=== PATIENT | male | born 1995 | race Two or more races ===

== ENCOUNTER 2016-11-02 14:55 | Emergency (ER) | payer OTHER ==
[2016-11-02 15:07] VITALS: TEMP 97.7; O2SAT 98
--- NOTE | 2016-11-02 16:16 | EDPHY ---
H & P Time Seen by Provider: 11/02/16 15:59 HPI/ROS: CHIEF COMPLAINT: Rectal bleeding HISTORY OF PRESENT ILLNESS: 21-year-old male generally healthy with prior history of benign colonic polyp removal approximately 1 year ago by of the [place] he is complaining of rectal bleeding for the past 24 hours. Does note that he has been constipated having to bear down heavily. Positive pain with defecation. No abdominal pain. No dizziness. No syncope or near syncope. No blood in underwear. No urinary abnormality. No unusual bruising.No rectal trauma or foreign body insertion. No gingival bleeding. No pain with defecation REVIEW OF SYSTEMS: A ten point review of systems was performed and is negative with the exception of the items mentioned in the HPI PAST MEDICAL & SURGICAL HISTORY: No pertinent medical or surgical history SOCIAL HISTORY: student PHYSICAL EXAM (Prior to examination, patient consented to physical exam, hands were washed and my usual and customary physical exam procedures followed) 1) GENERAL: Well-developed, well-nourished, alert and oriented. Appears to be in no acute distress. 2) HEAD: Normocephalic, atraumatic 3) HEENT: Pupils equal, round, reactive to light bilaterally. Sclera anicteric. No gingival bleeding 4) NECK: Full range of motion, no meningeal signs. 5) LUNGS: Clear auscultation bilaterally 6) HEART: Regular rate and rhythm, no murmur, no heave, no gallop. 7) ABDOMEN: No guarding, no rebound, no focal tenderness, negative McBurney's, negative Kim's, negative Rovsing's, negative peritoneal sign, 8) MUSCULOSKELETAL: No peripheral edema or discoloration. 9) BACK: No CVA tenderness, 10) SKIN: No rash, no petechiae. 11) rectal: Normal rectal tone, normal perianal examination, scant amount of bright red blood on digit. No pain. . DIFFERENTIAL DIAGNOSIS: in no particular order including but not limited to upper GI bleed, lower GI bleed, hemorrhoids, fissure Smoking Status: Former smoker Constitutional: Initial Vital Signs Temperature (C) 36.5 C 11/02/16 15:00 Heart Rate 85 11/02/16 15:00 Respiratory Rate 16 11/02/16 15:00 Blood Pressure 135/78 H 11/02/16 15:00 O2 Sat (%) 98 11/02/16 15:00 O2 Delivery Mode Room Air Allergies/Adverse Reactions: No Known Allergies Allergy (Verified 11/02/16 15:02) Home Medications: Medication Instructions Recorded Docusate Sodium [Colace] 100 mg PO BID #6 cap 11/02/16 MDM/Departure - [facility] ED Course/Re-evaluation: Doubt perianal or perirectal abscess. This patient is hemodynamically stable with normal H&H. I do not think that emergent transfusion, GI consultation is indicated. We discussed stool softening, treatment for constipation and the importanceOf follow-up with GI of the [place] use. Usual and customary rectal bleeding and abdominal precautions provided. - Depart Disposition: Home, Routine, Self-Care Clinical Impression: Rectal bleeding Constipation Qualifiers: Constipation type: other constipation type Qualifier Code: (K59.09) Other constipation Condition: Good Instructions: Constipation (ED), High Fiber Diet (ED), Rectal Bleeding (ED) Additional Instructions: If you have worsening bleeding, if you have abdominal pain, dizziness, seek immediate medical attention Prescriptions: Docusate Sodium [Colace] 100 mg PO BID #6 cap Referrals: [facility] [Provider Group] - 1-2 days without fail
[2016-11-02 16:27] LABS: % IMMATURE GRANULYOCYTES 0.3 % (0.0-1.1); ABSOLUTE IMMATURE GRANULOCYTES 0.02 10^3/uL (0.00-0.10); ADD DIFF? NO; ADD MORPH? NO; ADD SCAN? NO; ATYPICAL LYMPHOCYTE FLAG 10 (0-99); FRAGMENT RBC FLAG 0 (0-99); HEMATOCRIT 48.6 % (40.0-51.0); HEMOGLOBIN 16.2 g/dL (13.7-17.5); LEFT SHIFT FLG 0 (0-99); LIPEMIA HEMOLYSIS FLAG 80 (0-99); MEAN CELL HEMOGLOBIN 25.8 pg (27.9-34.1); MEAN CELL HEMOGLOBIN CONCENTR. 33.3 g/dL (32.4-36.7); MEAN CELL VOLUME 77.3 fL (81.5-99.8); PLATELET CLUMPS FLAG 0 (0-99); PLATELET COUNT 208 10^3/uL (150-400); RED BLOOD CELL COUNT 6.29 10^6/uL (4.40-6.38); RED CELL DISTRIBUTION WIDTH 15.5 % (11.5-15.2)
[2016-11-02 16:54] VITALS: BP 106/69; PULSE 68; RESP 18
== END 2016-11-02 16:53 | disposition home or self-care (01) ==
DX: K62.5 Hemorrhage of anus and rectum (principal); K59.09 Other constipation; Z87.891 Personal history of nicotine dependence